=== PATIENT | male | born 1935 | race Caucasian/White ===

== ENCOUNTER 2017-03-06 15:37 | Emergency (ER) | payer MEDICARE, BC ==
[2017-03-06 15:50] VITALS: BP 180/110
--- NOTE | 2017-03-06 16:09 | EDM.PDOC ---
ED HPI GENERAL MEDICAL PROBLEM - General Chief Complaint: Abdominal Pain Stated Complaint: STOMACH PAIN Time Seen by Provider: 03/06/17 16:00 Source of Information: Reports: Patient - History of Present Illness INITIAL COMMENTS - FREE TEXT/NARRATIVE: Patient is here today for evaluation for epigastric pain. He states that he had a couple hours ago, by the time he got to the ER he is having no pain whatsoever. He does have a history of GERD, he is on daily medication for this. He states that he did have orange juice this morning and that tends to make his pain worse. He states that he came here as he wanted a GI cocktail as they have worked well for him in the past, he is currently pain-free and does not desire that at this time. Patient is also accompanied by his daughter today who is quite concerned about his depression. Patient started her states that it's his just over a month ago and he has had a very hard time since then and she feels he is quite depressed and she is requesting a medication be started for his depression. Abdominal Pain Score (Numeric/FACES): 4 - Related Data Allergies Allergy/AdvReac Type Severity Reaction Status Date / Time etodolac [From Lodine] Allergy Swelling Verified 03/06/17 15:50 zolpidem tartrate Allergy Confusion Verified 03/06/17 15:50 [From Ambien] Home Meds: Home Meds Losartan Potassium 0 mg PO DAILY 08/30/16 [History] metFORMIN HCl [Metformin HCl] 0 mg PO BIDMEALS 10/02/16 [History] Omeprazole 20 mg PO DAILY #30 cap.cr 10/05/16 [Rx] FLUoxetine [PROzac] 20 mg PO DAILY #30 cap 03/06/17 [Rx] Past Medical History HEENT History: Reports: Cataract Cardiovascular History: Reports: Blood Clots/VTE/DVT, Hypertension Respiratory History: Reports: Sleep Apnea Other Respiratory History: on home 02 at 2lpm; on home CPAP Gastrointestinal History: Reports: Other (See Below) Other Gastrointestinal History: abdominal hernia. ulcers (remote) Genitourinary History: Reports: Renal Disease, Other (See Below) Other Genitourinary History: at age 31 had a "blood clot on one kidney." Neurological History: Reports: Vertigo Endocrine/Metabolic History: Reports: Diabetes, Type II - Infectious Disease History Infectious Disease History: Reports: Chicken Pox, Shingles - Past Surgical History HEENT Surgical History: Reports: Cataract Surgery GI Surgical History: Reports: Hernia, Abdominal Endocrine Surgical History: Reports: None Musculoskeletal Surgical History: Reports: Knee Replacement Social & Family History - Family History Family Medical History: Noncontributory Endocrine/Metabolic: Reports: Diabetes, type II - Tobacco Use Smoking Status *Q: Former Smoker Years of Tobacco use: 43 Packs/Tins Daily: 2 Used Tobacco, but Quit: Yes Month Tobacco Last Used: 2006 Second Hand Smoke Exposure: No - Caffeine Use Caffeine Use: Reports: Coffee Caffeine Use Comment: 2 cups daily - Alcohol Use Days Per Week of Alcohol Use: 0 Number of Drinks Per Day: 0 Total Drinks Per Week: 0 - Recreational Drug Use Recreational Drug Use: No Drug Use in Last 12 Months: No - Living Situation & Occupation Living situation: Reports: Occupation: Unemployed ED ROS GENERAL - Review of Systems Review Of Systems: See Below Constitutional: Reports: No Symptoms Respiratory: Reports: No Symptoms Cardiovascular: Reports: Blood Pressure Problem. Denies: Chest Pain, Claudication, Dyspnea on Exertion, Edema, Lightheadedness GI/Abdominal: Reports: Abdominal Pain. Denies: Anorexia, Black Stool, Bloody Stool, Decreased Appetite, Hematochezia, Nausea, Vomiting : Reports: No Symptoms Musculoskeletal: Reports: Joint Pain Skin: Reports: No Symptoms Neurological: Reports: No Symptoms Psychiatric: Reports: Anxiety, Depression. Denies: Suicidal Ideation ED EXAM, GI/ABD - Physical Exam Exam: See Below Exam Limited By: No Limitations General Appearance: Alert, WD/WN, No Apparent Distress Nose: Normal Inspection, Normal Mucosa Throat/Mouth: Normal Inspection, Normal Lips, Normal Oropharynx Neck: Normal Inspection Respiratory/Chest: No Respiratory Distress, Lungs Clear, Normal Breath Sounds, No Accessory Muscle Use Cardiovascular: Regular Rate, Rhythm, No Murmur GI/Abdominal Exam: Normal Bowel Sounds, Soft, Non-Tender (Patient has absolutely no abdominal tenderness.) Neurological: Alert, Oriented Psychiatric: Normal Affect, Normal Mood Skin Exam: Warm, Dry, Intact Course - Vital Signs Last Recorded V/S: Last Vital Signs Temp 97.9 F 03/06/17 15:46 Pulse 73 03/06/17 15:46 Resp 22 H 03/06/17 15:46 BP 180/110 H 03/06/17 15:46 Pulse Ox 93 L 03/06/17 15:46 - Re-Assessments/Exams Free Text/Narrative Re-Assessment/Exam: Patient had what sounded like heartburn/reflux symptoms but these have resolved. Patient declines further investigation or treatment for this. Discussed dietary modifications that would benefit him and he verbalized understanding of this. Patient's blood pressure is during exam today, he has not taken his losartan to yet today. Did discuss with him to try and take this in the morning and monitor home blood pressures. If blood pressure remains over 140/90 then he will need to be to follow up with his primary provider. He is completely asymptomatic currently denies any headache/dizziness/chest pain. I did advise patient that if he should become symptomatic then he will need to be evaluated. Patient did recently lose his , prior to her just over a month ago he was her primary caregiver at home for 7 years and she has a body dementia. Patient's daughter was quite concerned about his depression and when asked patient admits that he is significantly more depressed and he feels anxious and a daily basis. Options were discussed, strongly recommend that patient look into attending a grief support group. Patient is agreeable to this. He would also like to start medications, will start fluoxetine 20 mg daily. Patient will follow-up with his primary provider in one month or certainly sooner if needed. Patient denies any thoughts of harming himself or others, I did advise patient that if he should have any of these thoughts he is to stop the medication immediately and be evaluated in the emergency room and he verbalized understanding of this. 03/06/17 17:11 Departure - Departure Time of Disposition: 16:41 Disposition: Home, Self-Care 01 Condition: Good Clinical Impression: GERD (gastroesophageal reflux disease) Qualifiers: Esophagitis presence: esophagitis presence not specified Qualified Code(s): K21.9 - Gastro-esophageal reflux disease without esophagitis Depression Qualifiers: Depression Type: reactive depression Qualified Code(s): F32.9 - Major depressive disorder, single episode, unspecified Hypertension Qualifiers: Hypertension type: essential hypertension Qualified Code(s): I10 - Essential ( primary) hypertension - Discharge Information Prescriptions: FLUoxetine [PROzac] 20 mg PO DAILY #30 cap Instructions: Gastroesophageal Reflux Disease, Adult Referrals: PCP,Not In Area [Primary Care Provider] - Forms: ED Department Discharge Additional Instructions: Start fluoxetine 20 mg daily. I recommend considering a grief support group as well. He needs to follow up with your primary provider for this in 30 days or sooner if needed. If you should've any thoughts of harming herself he needed to stop this immediately and go to the emergency room. Avoid citrus fruits and spicy food which will irritate your heartburn. Take your blood pressure medication in the mornings. Continue to monitor your blood pressure at home, you need to follow up with your primary provider if this remains above 140/90. You may certainly return to the ER if needed
== END 2017-03-06 16:58 | disposition home or self-care (01) ==
LOC: JD.ED 15:37
DX: K21.9 Gastro-esophageal reflux disease without esophagitis (principal); F32.9 Major depressive disorder, single episode, unspecified; I10 Essential (primary) hypertension; E11.9 Type 2 diabetes mellitus without complications; Z79.84 Long term (current) use of oral hypoglycemic drugs; Z79.899 Other long term (current) drug therapy; Z88.8 Allergy status to other drugs, medicaments and biological substances; Z87.891 Personal history of nicotine dependence
CPT/HCPCS: 99283